=== PATIENT | female | born 1970 | race Caucasian/White ===

== ENCOUNTER 2017-07-26 03:16 | Inpatient (IN) | payer MEDICARE ==
[~2017-07-26] VITALS: Ht 167.6 cm; Wt 74.8 kg
--- NOTE | 2017-07-26 05:00 | NUR ---
pt alert and awake. ambulated into ED with c/o nausea and vomiting. pt in no acute distress
[2017-07-26] MEDS ORDERED: ZOLP10TA2 (05:15)
[2017-07-26] MEDS ORDERED: LORA2TAB (05:15)
[2017-07-26] MEDS ORDERED: DEXT10TA7 (05:15)
[2017-07-26] MEDS ORDERED: OXYC30TA2 (05:15)
[2017-07-26] MEDS ORDERED: ONDANSETRON 4 MG/2 ML VIAL IM ONE (05:30)
[2017-07-26 05:50] LABS: BASOPHILS % (AUTO) 0.4 % (0.0-2.0); HEMOGLOBIN 12.5 g/dL (10.9-14.3); LYMPHOCYTES # (AUTO) 1.5 K/uL (20.0-40.0); LYMPHOCYTES % (AUTO) 13.7 % (20.5-51.5); MEAN CORPUSCULAR HEMOGLOBIN 29.4 uug (24.7-32.8); MEAN CORPUSCULAR HGB CONC 33 g/dL (32.3-35.6); MEAN CORPUSCULAR VOLUME 89.7 fL (75.5-95.3); MONOCYTES # (AUTO) 0.5 K/uL (2.0-10.0); MONOCYTES % (AUTO) 4.6 % (0.0-11.0); NEUTROPHILS # (AUTO) 9.1 K/uL (1.8-8.9); NEUTROPHILS % (AUTO) 81.3 % (38.5-71.5); PLATELET COUNT (AUTO) 307 K/uL (179-408); RED BLOOD CELL COUNT(AUTO) 4.23 MIL/uL (3.63-4.92); WHITE BLOOD COUNT (AUTO) 11.2 K/uL (3.8-11.8)
[2017-07-26 05:55] LABS: POTASSIUM 3.6 mmol/L (3.5-5.1)
[2017-07-26] MEDS ORDERED: KETOROLAC TROMETHAMINE 30 MG INJ IM ONE (06:00)
[2017-07-26 06:01] LABS: BILIRUBIN,DIRECT 0.1 mg/dL (0.0-0.2); BILIRUBIN,TOTAL 0.2 mg/dL (0.2-1.0); TOTAL PROTEIN, SERUM 6.8 g/dL (6.4-8.2)
[2017-07-26] MEDS ORDERED: ONDANSETRON 4 MG/2 ML VIAL ONE ×2 (06:10→11:42)
[2017-07-26] MEDS ORDERED: KETOROLAC TROMETHAMINE 30 MG INJ ONE (06:13)
[2017-07-26 06:32] LABS: *BILIRUBIN,URIN NEGATIVE (NEGATIVE); *BLOOD, URINE 2+ (NEGATIVE); *CLARITY,URINE CLEAR (CLEAR); *COLOR,URINE YELLOW (YELLOW); *KETONES,URINE 2+ (NEGATIVE); *PROTEIN,URINE NEGATIVE (NEGATIVE); *UROBILINOGEN,URINE 0.2 E.U./dl (NORMAL); LEUKOCYTE ESTERASE ,URINE NEGATIVE (NEGATIVE); NITRITE, URINE NEGATIVE (NEGATIVE); UGLUCOSE NEGATIVE (NEGATIVE)
[2017-07-26 06:45] LABS: BACTERIA,URINE FEW /HPF (NONE SEEN); RBC,URINE 20-50 /HPF (0-3); SQUAMOUS EPITHELIAL CELL,UR FEW /HPF (NONE SEEN); WBC,URINE 0-3 /HPF (0-3)
[2017-07-26] MEDS ORDERED: LORAZEPAM 2 MG/1 ML VIAL IV ONE ×2 (06:51→11:15)
[2017-07-26] MEDS ORDERED: IV NS 1000 ML 1,000 ML IV ONE (07:00)
--- NOTE | 2017-07-26 07:15 | NUR ---
Medical Office Manager assumes care, RN Arlene is attempting IV line @this time.
[2017-07-26] MEDS ORDERED: LORAZEPAM 2 MG/1 ML VIAL ONE ×3 (07:18→11:43)
--- NOTE | 2017-07-26 07:19 | NUR ---
pt endorsed to day shift nurse Isabel PLOLOCK.
--- NOTE | 2017-07-26 07:29 | NUR ---
Patient ambulated to bathroom to void, +steady gait. Patient was not able to provided urine specimen. "I forgot." per patient's verbalization.
--- NOTE | 2017-07-26 07:31 | NUR ---
PHILL Arroyo is attempting IV line at this time. Patient says, "I usually have PICC line." Dr Goff notified.
--- NOTE | 2017-07-26 07:35 | NUR ---
* PHILL Arroyo tried to start IV line after multiple attempts, unsuccessful. No IV line or IV fluids at this time, Dr Goff notified.
[2017-07-26] MEDS ORDERED: LORAZEPAM 2 MG/1 ML VIAL IM ONE ×2 (07:37→09:15)
--- NOTE | 2017-07-26 07:45 | NUR ---
"May give water for now." per Dr Goff. 4 cups of water provided.
--- NOTE | 2017-07-26 07:50 | NUR ---
"Can I have pain medicine?" per patient. MD notified.
--- NOTE | 2017-07-26 07:56 | NUR ---
4 packets of crackers & apple juice given, monitored for vomiting
[2017-07-26] MEDS ORDERED: HYDROCODONE/APAP 10-325 MG TABLET PO ONE (08:00)
[2017-07-26] MEDS ORDERED: HYDROCODONE/APAP 10-325 MG TABLET ONE (08:18)
--- NOTE | 2017-07-26 08:23 | NUR ---
"I want more pain medicine and I still have the shakes." per patient's verbalization, aware
--- NOTE | 2017-07-26 09:14 | NUR ---
'Hot breakfast" tray provided, +good appetite, NAD.
--- NOTE | 2017-07-26 09:35 | NUR ---
Patient ate 100% of the breakfast tray. Patient is resting comfortably on gurney with eyes closed, NAD
--- NOTE | 2017-07-26 09:56 | NUR ---
Patient wants to be admitted, aware. [facility] hospitalist was called.
[2017-07-26] MEDS ORDERED: MAGNESIUM HYDROXIDE 30 ML LIQUID UDC PO PRN (10:15)
[2017-07-26] MEDS ORDERED: ACETAMINOPHEN 325 MG TABLET PO PRN (10:15)
[2017-07-26] MEDS ORDERED: HYDROCODONE/APAP 5-325MG TABLET PO PRN (10:15)
[2017-07-26] MEDS ORDERED: Z GUARD REMEDY PASTE 57 GM TUBE TOP PRN (10:15)
[2017-07-26] MEDS ORDERED: MORPHINE SULFATE 2 MG/1 ML DISP.SYRIN IV PRN (10:15)
[2017-07-26] MEDS ORDERED: ONDANSETRON 4 MG/2 ML VIAL IV PRN (10:15)
--- NOTE | 2017-07-26 10:21 | NUR ---
Patient is ready & positioned for EJ vein line insertion by .
--- NOTE | 2017-07-26 10:57 | NUR ---
attempted EJ vein line insertion, unsuccessful. is now attempting femoral line insertion
[2017-07-26 11:09] LABS: *AMPHETAMINE, URINE POSITIVE (NEGATIVE); *BARBITURATE, URINE NEGATIVE (NEGATIVE); *CANNABINOID, URINE NEGATIVE (NEGATIVE); *COCCAINE, URINE NEGATIVE (NEGATIVE); *OPIATE, URINE NEGATIVE (NEGATIVE); *PHENCYCLIDINE SCREEN,URINE NEGATIVE (NEGATIVE)
[2017-07-26] MEDS ORDERED: MORPHINE SULFATE 2 MG/1 ML DISP.SYRIN IV ONE (11:15)
[2017-07-26] MEDS ORDERED: ONDANSETRON IV *ER 4 MG/2 ML VIAL IV ONE (11:15)
[2017-07-26] MEDS: IV NS 1000 ML 1,000 ML IV PRN ×2 (11:20→13:20)
--- NOTE | 2017-07-26 11:21 | NUR ---
still for transfer to 2nd floor, pending admission papers, endorsed to PHILL sherman
[2017-07-26] MEDS ORDERED: MORPHINE SULFATE 4 MG/1 ML DISP.SYRIN ONE (11:42)
[2017-07-26 12:39] VITALS: BP 103/54
--- NOTE | 2017-07-26 12:49 | NUR ---
46 year old female pt received from via gurney in stable [id number] is axox4 v/s are stable orient the pt to room and surroundings.
[2017-07-26] MEDS: LORAZEPAM 2 MG/1 ML VIAL IV PRN ×3 (15:36→23:43)
[2017-07-26 16:02] VITALS: BP 122/63
--- NOTE | 2017-07-26 19:25 | NUR ---
RECEIVED PT IN BED. AXO X4. IV INFUSING. BED ON LOW POSITION. O2 AT 98% ON RA. SINUS RHYTHM ON TELE
--- NOTE | 2017-07-26 19:44 | NUR ---
PT COMPLAINED OF ANXIETY AND GIVEN ATIVAN PER ORDER.
[2017-07-26 20:15] VITALS: BP 98/43
--- NOTE | 2017-07-26 20:30 | NUR ---
PT DESATURATING BETWEEN 70'S TO 80'S AT 2LPM VIA NC. HOB ELEVATED AND REPOSITION FOR COMFORT. RT NOTIFIED. Addendum: 07/26/17 at 2323 by TRELL REYNOSO RN WRONG PATIENT
[2017-07-26] MEDS: MORPHINE SULFATE 4 MG/1 ML DISP.SYRIN IV PRN (20:47)
--- NOTE | 2017-07-26 20:50 | NUR ---
PT COMPLAINED OF GENERALIZED PAIN AND GIVEN MORPHINE PER ORDER.
--- NOTE | 2017-07-26 20:55 | NUR ---
PLACED ON BIPAP 24/10, FIO2 OF 40%, SATURATING 100% AT THIS TIME. RT AT BEDSIDE. Addendum: 07/26/17 at 2321 by TRELL REYNOSO RN WRONG PT
--- NOTE | 2017-07-26 23:15 | NUR ---
DRESSING CHANGE TO RIGHT FEMORAL AREA IV SITE.
--- NOTE | 2017-07-26 23:45 | NUR ---
PT COMPLAINED OF ANXIETY AND NAUSEA. ATIVAN GIVEN FOR ANXIETY AND ZOFRAN GIVEN FOR NAUSEA.
[2017-07-27] VITALS: BP 129/70
[2017-07-27] MEDS: MORPHINE SULFATE 4 MG/1 ML DISP.SYRIN IV PRN ×3 (00:40→08:19)
[2017-07-27] MEDS: LORAZEPAM 2 MG/1 ML VIAL IV PRN ×2 (03:00→06:50)
--- NOTE | 2017-07-27 03:00 | NUR ---
PT COMPLAINED OF ANXIETY, LORAZEPAM GIVEN PER ORDER. DRESSING ON RIGHT FEMORAL IV SITE DISPLACED. DRESSING CHANGED. INSTRUCTED PT TO MOVE SLOWLY AND CAREFULLY TO PREVENT PULLING IV TUBING AND STATES UNDERSTANDING.
[2017-07-27] MEDS: IV NS 1000 ML 1,000 ML IV PRN (03:57)
[2017-07-27 04:00] VITALS: BP 125/62
--- NOTE | 2017-07-27 04:14 | NUR ---
PT COMPLAINED OF GENERALIZED PAIN 10/10, MORPHINE GIVEN PER ORDER.
--- NOTE | 2017-07-27 06:00 | NUR ---
PT AXO4. IN NO ACUTE DISTRESS. VS STABLE. O2 SAT AT 97% ON RA. FREQUENT ANXIETY, LORAZEPAM GIVEN EVERY 4HR PRN, LAST GIVEN AT 0300, WITH MINIMAL EFFECT. C/O GENERALIZED PAIN AND GIVEN MORPHINE EVERY 4HR PRN, LAST GIVEN AT 0414, WITH MINIMAL RELIEF. DRESSING CHANGE TO RIGHT FEMORAL IV SITE X2 DUE TO SOILING. SINUS RHYTHM ON TELE. BRP. NO FALLS REPORTED. CONTINUE CURRENT PLAN OF CARE.
[2017-07-27 06:25] LABS: BASOPHILS # (AUTO) 0.1 K/uL (0.0-8.0); BASOPHILS % (AUTO) 0.7 % (0.0-2.0); EOSINOPHILS # (AUTO) 0.2 K/uL (0.0-0.7); EOSINOPHILS % (AUTO) 2.5 % (0.0-7.0); HEMATOCRIT 35.9 % (31.2-41.9); HEMOGLOBIN 11.8 g/dL (10.9-14.3); LYMPHOCYTES # (AUTO) 2.4 K/uL (20.0-40.0); MEAN CORPUSCULAR HEMOGLOBIN 29.5 uug (24.7-32.8); MEAN CORPUSCULAR HGB CONC 33 g/dL (32.3-35.6); MEAN CORPUSCULAR VOLUME 89.7 fL (75.5-95.3); MONOCYTES # (AUTO) 0.6 K/uL (2.0-10.0); MONOCYTES % (AUTO) 6.3 % (0.0-11.0); NEUTROPHILS # (AUTO) 5.6 K/uL (1.8-8.9); NEUTROPHILS % (AUTO) 63.5 % (38.5-71.5); PLATELET COUNT (AUTO) 261 K/uL (179-408); WHITE BLOOD COUNT (AUTO) 8.9 K/uL (3.8-11.8)
[2017-07-27 06:41] LABS: CREATININE 0.9 mg/dL (0.6-1.3); MAGNESIUM 1.8 mg/dL (1.8-2.4); POTASSIUM 3.7 mmol/L (3.5-5.1)
--- NOTE | 2017-07-27 06:50 | NUR ---
PT COMPLAINED OF ANXIETY. LORAZEPAM GIVEN PER ORDER.
--- NOTE | 2017-07-27 07:40 | NUR ---
RECEIVED PT IN BED. AXO X4. IV INFUSING. BED ON LOW POSITION. O2 AT 98% ON RA. SINUS RHYTHM ON TELE call light with in reach
--- NOTE | 2017-07-27 08:00 | NUR ---
DSG. CHANGED RIGHT FEMORAL USING STERILE TECHNIQUE. SITE CLEANSED WITH NS, & TEGADERM APPLIED.
--- NOTE | 2017-07-27 08:19 | NUR ---
PT COMPLAINED OF GENERALIZED PAIN 10/10, MORPHINE GIVEN PER ORDER.
[2017-07-27 11:11] VITALS: BP 114/67
[2017-07-27] MEDS: OXYCODONE HCL 5 MG TABLET PO PRN ×2 (12:16→18:19)
[2017-07-27] MEDS: LORAZEPAM 1 MG TABLET PO PRN ×2 (14:51→18:46)
[2017-07-27 15:21] VITALS: BP 121/53
--- NOTE | 2017-07-27 16:00 | NUR ---
IV DCD AFTER REMOVING 2 SUTURES. ANGIOCATH REMOVED INTACT. PRESSURE DRESSING APPLIED.
[2017-07-27] MEDS ORDERED: ONDANSETRON HCL 4 MG TABLET PO PRN (17:30)
--- NOTE | 2017-07-27 19:30 | NUR ---
Received patient laying comfortably in bed. No c/o pain. A&O x 4. No IV site. Previous IV site on the femoral C/D/I. Safety initiated. Call light within reach. Bed is in low and locked position. Room is kept clutter free. Will continue to monitor.
[2017-07-27 20:00] VITALS: BP 115/58
[2017-07-27] MEDS ORDERED: ZOLPIDEM 5 MG TABLET PO PRN (21:15)
[2017-07-28] MEDS: LORAZEPAM 1 MG TABLET PO PRN ×3 (00:13→08:20)
[2017-07-28] MEDS: OXYCODONE HCL 5 MG TABLET PO PRN ×2 (01:35→07:21)
[2017-07-28 04:35] VITALS: BP 111/73
--- NOTE | 2017-07-28 05:45 | NUR ---
Patient slept intermittently t/o shift. Patient reports feeling anxious. Meds given, stated relief. Vital signs stable. Safety and comfort measures maintained t/o shift. Room is kept clutter free. Bed is in low and locked position. All meds given as ordered. All needs met.
--- NOTE | 2017-07-28 07:29 | NUR ---
Received patient laying comfortably in bed. c/o pain. A&O x 4. No IV site. Call light within reach. Will continue to monitor.
--- NOTE | 2017-07-28 09:50 | NUR ---
D/C ORDERS RECEIVED NOTED AND CARRIED OUT.D/C INSTRUCTION GIVEN TO PT AND PT VERBALIZED UNDERSTANDING ALL THE INSTRUCTIONS,PT LEFT THE FACILITY VIA PRIVATE CAR IN STABLE CONDITION.
== END 2017-07-28 09:55 | disposition home or self-care (01) | DRG 897 ==
LOC: ER 03:20 → TELE 11:42 → EDBD 11:42 → MED 07-27 11:50
PROVIDERS: ADMIT Internal Medicine; ATTEND Internal Medicine
PROC: 06HM33Z Insertion of Infusion Device into Right Femoral Vein, Percutaneous Approach (ICD-10-PCS; principal; 2017-07-26)
DX: F13.239 Sedative, hypnotic or anxiolytic dependence with withdrawal, unspecified (principal); F11.23 Opioid dependence with withdrawal; E03.9 Hypothyroidism, unspecified; F32.9 Major depressive disorder, single episode, unspecified; M79.7 Fibromyalgia; F41.9 Anxiety disorder, unspecified; G89.29 Other chronic pain; M19.90 Unspecified osteoarthritis, unspecified site; F90.9 Attention-deficit hyperactivity disorder, unspecified type; Z79.899 Other long term (current) drug therapy
CPT/HCPCS: 36415; 36556; 80307; 83690; 83735; 84100; 84443; 84703; 85025; A4663; C1751; J1885; J2060; J2270; J2405; J7030; J7050

== ENCOUNTER 2017-10-23 07:56 | Inpatient (IN) | payer MEDICARE, OTHER ==
[~2017-10-23] VITALS: Ht 167.6 cm; Wt 74.8 kg
[~2017-10-23 07:56] MED LIST: LIDOCAINE HCL 1% 20 ML VIAL MC ONE; LORA2TAB; OXYC30TA2; PROPOFOL 200 MG/20 ML BOTTLE IV ONE; ZOLP10TA2
[2017-10-23] MEDS ORDERED: CLON2TAB4 PO (08:08)
[2017-10-23] MEDS ORDERED: BUPR1FIL3 SL (08:08)
[2017-10-23] MEDS ORDERED: PANTOPRAZOLE SODIUM 40 MG VIAL IV ONE (08:15)
[2017-10-23] MEDS ORDERED: LORAZEPAM 2 MG/1 ML VIAL IV ONE ×3 (08:15→08:45)
[2017-10-23] MEDS ORDERED: IV NORMAL SALINE 1000 ML BAG IV ONE (08:15)
[2017-10-23] MEDS ORDERED: ONDANSETRON 4 MG/2 ML VIAL ONE (08:17)
[2017-10-23] MEDS ORDERED: LORAZEPAM 2 MG/1 ML VIAL ONE ×4 (08:18→10:45)
[2017-10-23] MEDS ORDERED: PANTOPRAZOLE SODIUM 40 MG VIAL ONE (08:20)
[2017-10-23 08:23] LABS: BASOPHILS # (AUTO) 0.1 K/uL (0.0-8.0); BASOPHILS % (AUTO) 0.7 % (0.0-2.0); EOSINOPHILS # (AUTO) 0.2 K/uL (0.0-0.7); EOSINOPHILS % (AUTO) 1.5 % (0.0-7.0); HEMATOCRIT 46.9 % (31.2-41.9); HEMOGLOBIN 15.9 g/dL (10.9-14.3); LYMPHOCYTES # (AUTO) 3.6 K/uL (20.0-40.0); LYMPHOCYTES % (AUTO) 30.2 % (20.5-51.5); MEAN CORPUSCULAR HEMOGLOBIN 29.6 uug (24.7-32.8); MEAN CORPUSCULAR HGB CONC 34 g/dL (32.3-35.6); MEAN CORPUSCULAR VOLUME 87.2 fL (75.5-95.3); MONOCYTES # (AUTO) 0.9 K/uL (2.0-10.0); MONOCYTES % (AUTO) 7.5 % (0.0-11.0); NEUTROPHILS # (AUTO) 7.2 K/uL (1.8-8.9); NEUTROPHILS % (AUTO) 60.1 % (38.5-71.5); PLATELET COUNT (AUTO) 321 K/uL (179-408); RED BLOOD CELL COUNT(AUTO) 5.37 MIL/uL (3.63-4.92); WHITE BLOOD COUNT (AUTO) 11.9 K/uL (3.8-11.8)
--- NOTE | 2017-10-23 08:45 | NUR ---
SALINE LOCK PLACED/LABS DRAWN/URINE SENT/POISEN CONTROL WAS CALLED BY DR THOMPSON/MEDS ADMINISTERED/CXR DONE/URINE SENT/1L 0.9NS BOLUS INFUSING/EKG DONE/MONITOR SHOWS, SINUS TACH AT 126/PO2 =98% ON ROOM AIR.
[2017-10-23 08:50] LABS: *BILIRUBIN,URIN NEGATIVE (NEGATIVE); *BLOOD, URINE 2+ (NEGATIVE); *CLARITY,URINE CLEAR (CLEAR); *COLOR,URINE YELLOW (YELLOW); *KETONES,URINE 1+ (NEGATIVE); *PROTEIN,URINE 1+ (NEGATIVE); *UROBILINOGEN,URINE 0.2 E.U./dl (NORMAL); LEUKOCYTE ESTERASE ,URINE TRACE (NEGATIVE); NITRITE, URINE NEGATIVE (NEGATIVE); UGLUCOSE NEGATIVE (NEGATIVE)
[2017-10-23 08:54] LABS: CARBON DIOXIDE 21 mmol/L (21-32); CHLORIDE 110 mmol/L (98-107); CREATININE 1.4 mg/dL (0.6-1.3); GLUCOSE 155 mg/dL (74-106); UREA NITROGEN, BLOOD 17 mg/dL (7-18)
[2017-10-23 09:02] LABS: ETHANOL < 3 MG/DL (0-0)
[2017-10-23 09:05] LABS: *AMPHETAMINE, URINE NEGATIVE (NEGATIVE); *BARBITURATE, URINE NEGATIVE (NEGATIVE); *CANNABINOID, URINE POSITIVE (NEGATIVE); *COCCAINE, URINE NEGATIVE (NEGATIVE); *OPIATE, URINE NEGATIVE (NEGATIVE); *PHENCYCLIDINE SCREEN,URINE NEGATIVE (NEGATIVE)
[2017-10-23 09:10] LABS: ACETAMINOPHEN < 2.0 ug/mL (10-30); ALANINE AMINOTRANSFERASE 29 U/L (14-59); ALKALINE PHOSPHATASE 119 U/L (50-136); ASPARTATE AMINOTRANSFERASE 20 U/L (15-37); BILIRUBIN,DIRECT 0.1 mg/dL (0.0-0.2); BILIRUBIN,TOTAL 0.3 mg/dL (0.2-1.0); TOTAL PROTEIN, SERUM 7.5 g/dL (6.4-8.2)
[2017-10-23 09:30] LABS: BACTERIA,URINE FEW /HPF (NONE SEEN); CALCIUM OXALATE CRYSTALS,UR MANY /HPF (NONE SEEN); SQUAMOUS EPITHELIAL CELL,UR FEW /HPF (NONE SEEN)
--- NOTE | 2017-10-23 09:47 | NUR ---
sbar report to neurosurgery research director. belonging list done,
[2017-10-23] MEDS ORDERED: LORAZEPAM 2 MG/1 ML VIAL IV PRN (11:45)
[2017-10-23 13:04] VITALS: BP 145/73
--- NOTE | 2017-10-23 13:13 | NUR ---
Patient was brought from surgery, extremely anxious, asking for ice chips and Ativan repeatedly. Was told she will get it after the tele monitor gets placed but patient kept asking. Tele monitor was placed, Vitals taken however pt refusing full assessment. Dr Thorne was called for and order for Ativan, patient was given Ativan as ordered. 1:1 sitter at bedside, Graham from crisis team was called and Psych consult was placed
[2017-10-23] MEDS ORDERED: HYDROMORPHONE 1 MG/1 ML DISP.SYRIN IV PRN (14:30)
[2017-10-23] MEDS ORDERED: ACETAMINOPHEN 650 MG SUPP.RECT RC PRN (14:30)
[2017-10-23] MEDS: LORAZEPAM 2 MG/1 ML VIAL IV PRN ×3 (14:36→23:59)
[2017-10-23] MEDS: CEFTRIAXONE 1 G in IV DEXTROSE 5% 50 ML IV SCH (14:43)
--- NOTE | 2017-10-23 14:44 | NUR ---
ADMINISTERED ATIVAN VIA RFA IV. UPON FLUSHING PATIENT COMPLAINED OF BURNING, DID NOT LET ME ASSESS IV ANY FURTHER, ASKED ME TO LEAVE AND SAID "JUST LEAVE IT, I WANT TO SLEEP"
[2017-10-23] MEDS: HYDROMORPHONE 2 MG/1 ML DISP.SYRIN IV PRN ×3 (15:42→23:24)
[2017-10-23 15:43] VITALS: BP 127/64
[2017-10-23 16:22] VITALS: BP 147/79
[2017-10-23] MEDS: SUCRALFATE 1 G/10 ML LIQUID UDC PO SCH (17:18)
--- NOTE | 2017-10-23 19:30 | NUR ---
nsg: pt received alert, oriented, but very anxious. c/o of severe anxiety, and back pain. with 1:1 sitter for safety. tele, SR. when asked if she currently thinks of committing suicide, pt stated yes. cont to monitor. 1:1 sitter at the bedside.
[2017-10-23] MEDS: POTASSIUM CHLORIDE 20 MEQ in IV D5 1/2 NS 1000 ML 1,000 ML IV PRN (19:45)
[2017-10-23 20:00] VITALS: BP 104/52
[2017-10-23] MEDS ORDERED: PANTOPRAZOLE SODIUM 40 MG VIAL IV SCH (21:00)
[2017-10-23] MEDS: PANTOPRAZOLE SODIUM 40 MG VIAL IV SCH (21:07)
[2017-10-24] VITALS: BP 104/50
[2017-10-24] MEDS: SUCRALFATE 1 G/10 ML LIQUID UDC PO SCH ×4 (00:07→17:41)
[2017-10-24 04:00] VITALS: BP 118/61
[2017-10-24] MEDS: HYDROMORPHONE 2 MG/1 ML DISP.SYRIN IV PRN ×5 (04:36→20:38)
[2017-10-24] MEDS: LORAZEPAM 2 MG/1 ML VIAL IV PRN ×4 (05:19→17:21)
--- NOTE | 2017-10-24 05:25 | NUR ---
end of shift notes: pt slept for 6 hrs. wakes up in between requesting for ativan and dilaudid. pt is very anxious when awake. also, c/o back pain, medicated with dilaudid 1mg ivp. 1:1 sitter at the bedside. remains npo except ice chips. on cont ivf. tele, SR. cont to monitor.
--- NOTE | 2017-10-24 08:00 | NUR ---
AWAKE ANXIOUS BUT COOPERATE WELL RESTING QUIET WITH CALL LIGHT IN REACH AND SITTER 1:1 AT BEDSIDE FOR SAFETY CLOSED OBSERVATION
[2017-10-24] MEDS: PANTOPRAZOLE SODIUM 40 MG VIAL IV SCH ×2 (08:09→20:39)
[2017-10-24] MEDS: POTASSIUM CHLORIDE 20 MEQ in IV D5 1/2 NS 1000 ML 1,000 ML IV PRN ×2 (08:10→20:39)
--- NOTE | 2017-10-24 10:00 | NUR ---
DR LIPSCOMB SEEN PATIENT THIS AM NO NEW ORDER
[2017-10-24 10:08] LABS: BASOPHILS % (AUTO) 0.5 % (0.0-2.0); EOSINOPHILS # (AUTO) 0.3 K/uL (0.0-0.7); EOSINOPHILS % (AUTO) 2.9 % (0.0-7.0); HEMOGLOBIN 13.1 g/dL (10.9-14.3); LYMPHOCYTES # (AUTO) 2.6 K/uL (20.0-40.0); LYMPHOCYTES % (AUTO) 27.6 % (20.5-51.5); MEAN CORPUSCULAR HEMOGLOBIN 29.5 uug (24.7-32.8); MEAN CORPUSCULAR HGB CONC 34 g/dL (32.3-35.6); MEAN CORPUSCULAR VOLUME 87.7 fL (75.5-95.3); MONOCYTES # (AUTO) 0.4 K/uL (2.0-10.0); MONOCYTES % (AUTO) 3.8 % (0.0-11.0); NEUTROPHILS # (AUTO) 6.1 K/uL (1.8-8.9); NEUTROPHILS % (AUTO) 65.2 % (38.5-71.5); PLATELET COUNT (AUTO) 177 K/uL (179-408); RED BLOOD CELL COUNT(AUTO) 4.45 MIL/uL (3.63-4.92); WHITE BLOOD COUNT (AUTO) 9.4 K/uL (3.8-11.8)
[2017-10-24 10:44] LABS: BILIRUBIN,TOTAL 0.2 mg/dL (0.2-1.0); CREATININE 1.1 mg/dL (0.6-1.3); MAGNESIUM 1.6 mg/dL (1.8-2.4); POTASSIUM 3.2 mmol/L (3.5-5.1); TOTAL PROTEIN, SERUM 6.2 g/dL (6.4-8.2)
[2017-10-24 11:26] VITALS: BP 118/76
[2017-10-24] MEDS: CEFTRIAXONE 1 G in IV DEXTROSE 5% 50 ML IV SCH (14:26)
[2017-10-24] MEDS ORDERED: PANT40TA2 PO (15:28)
[2017-10-24] MEDS ORDERED: SUCR1ORA PO (15:28)
--- NOTE | 2017-10-24 16:00 | NUR ---
DR WALLACE ORDER NEW MEDICINE TO CALM HER DOWN FOR ANXIETY REQUEST RESTING WELL IN ROOM D/C PLANNING TO OUT SIDE FACILITY WORKING BY PROGRAM MANAGEMENT ANALYST
[2017-10-24 16:06] VITALS: BP 120/67
[2017-10-24] MEDS: DULOXETINE 30 MG CAPSULE.DR PO SCH (16:29)
--- NOTE | 2017-10-24 17:15 | NUR ---
SAME CONDITION ,VERY ANXIETY BUT COOPERATE NO ACUTE DISTRESS NO AGITATION SAFETY MEASURE SITTER 1:1 AT BEDSIDE AND CALL LIGHT IN REACH
[2017-10-24 19:00] VITALS: BP 123/62
--- NOTE | 2017-10-24 20:00 | NUR ---
Pt observed to be sleeping at this time, but easily arousable to verbal and tactile stimuli. Tele noted to be sinus rhythm. 1:1 sitter at bedside. No s/s of distress noted at this time. Safety measures provided. IVF running as ordered. Will continue to monitor closely.
[2017-10-24] MEDS: CLONAZEPAM 0.5 MG TABLET PO PRN (20:38)
[2017-10-25] VITALS: BP 140/53
[2017-10-25] MEDS: SUCRALFATE 1 G/10 ML LIQUID UDC PO SCH ×3 (00:24→11:05)
[2017-10-25] MEDS: LORAZEPAM 2 MG/1 ML VIAL IV PRN ×5 (00:24→16:30)
[2017-10-25] MEDS: HYDROMORPHONE 2 MG/1 ML DISP.SYRIN IV PRN ×4 (01:08→13:32)
--- NOTE | 2017-10-25 05:24 | NUR ---
Per pt, she is feeling very anxious and has suicidal ideations at this time. Relaxation techniques provided and pt remains cooperative with all care. Ativan PRN administered as ordered. 1:1 sitter at bedside for safety. Pt made aware of all plan of care. Will continue to monitor closely.
[2017-10-25 05:58] VITALS: BP 128/77
--- NOTE | 2017-10-25 07:20 | NUR ---
Received pt awake, alert and oriented time 4. Pt states she wants her pain medication and Ativan as soon as they are due. 1:1 sitter is present in the room for safety. Pt is able to ambulated and verbalize needs. Pt states she is very anxious.
[2017-10-25] MEDS: PANTOPRAZOLE SODIUM 40 MG VIAL IV SCH (08:05)
[2017-10-25] MEDS: DULOXETINE 30 MG CAPSULE.DR PO SCH (08:05)
[2017-10-25] MEDS: CLONAZEPAM 0.5 MG TABLET PO PRN (08:06)
[2017-10-25 08:20] VITALS: BP 113/66
[2017-10-25 12:00] VITALS: BP 120/61
[2017-10-25] MEDS: CEFTRIAXONE 1 G in IV DEXTROSE 5% 50 ML IV SCH (14:11)
--- NOTE | 2017-10-25 14:50 | NUR ---
Informed by case management that there is a room for the pt at [facility].
[2017-10-25 16:33] VITALS: BP 137/74
--- NOTE | 2017-10-25 16:40 | NUR ---
Pt was discharged with orders to [facility]. Pt had discharge orders since yesterday 10/24. Pt signed personal belonging list after going thought it and discharge papers. Pt is leaving via [facility] with two millinery designer. Report was given and [facility] is aware of pt's arrival. IV line removed after giving last dose of Ativan. Removed ID band. Pt is in stable conditions. No apparent s/s of SOB, distress or discomfort.
[2017-10-25] MEDS ORDERED: PANTOPRAZOLE SODIUM 40 MG TABLET.DR PO SCH (17:00)
[2017-10-25] MEDS ORDERED: MIRTAZAPINE 15 MG TABLET PO SCH (21:00)
== END 2017-10-25 16:40 | DRG 917 ==
LOC: ER 07:56 → CCU 09:20 → TELE 11:23 → MED 10-25 13:00
PROVIDERS: ADMIT Internal Medicine; ATTEND Internal Medicine
PROC: 0DB68ZX Excision of Stomach, Via Natural or Artificial Opening Endoscopic, Diagnostic (ICD-10-PCS; 2017-10-23)
PROC: 0DB98ZX Excision of Duodenum, Via Natural or Artificial Opening Endoscopic, Diagnostic (ICD-10-PCS; principal; 2017-10-23 10:00)
DX: T54.3X2A Toxic effect of corrosive alkalis and alkali-like substances, intentional self-harm, initial encounter (principal); N17.0 Acute kidney failure with tubular necrosis; T28.6XXA Corrosion of esophagus, initial encounter; F33.2 Major depressive disorder, recurrent severe without psychotic features; T28.7XXA Corrosion of other parts of alimentary tract, initial encounter; F11.20 Opioid dependence, uncomplicated; K22.10 Ulcer of esophagus without bleeding; E87.0 Hyperosmolality and hypernatremia; F13.20 Sedative, hypnotic or anxiolytic dependence, uncomplicated; J98.11 Atelectasis; T52.8X2A Toxic effect of other organic solvents, intentional self-harm, initial encounter; Y92.89 Other specified places as the place of occurrence of the external cause; K25.9 Gastric ulcer, unspecified as acute or chronic, without hemorrhage or perforation; M79.7 Fibromyalgia; G89.4 Chronic pain syndrome; E87.6 Hypokalemia; K29.80 Duodenitis without bleeding; G40.909 Epilepsy, unspecified, not intractable, without status epilepticus; F90.9 Attention-deficit hyperactivity disorder, unspecified type; F41.9 Anxiety disorder, unspecified; Z90.710 Acquired absence of both cervix and uterus
CPT/HCPCS: 36415; 43235; 71045; 80307; 83550; 83735; 84100; 84443; 84703; 85025; 85730; 86850; 86900; 86901; 88342; 93005; A4217; A4663; C9113; G0480; G0480-TC; J0696; J1170; J2060; J2405; J3480; J3490; J7030; J7060; J7120

== ENCOUNTER 2018-01-17 20:26 | Emergency (ER) | payer MEDICARE, OTHER ==
[~2018-01-17] VITALS: Ht 167.6 cm; Wt 83.9 kg
[~2018-01-17 20:26] MED LIST changes: +BUPR1FIL3 SL; +CLON2TAB11 PO; -LIDOCAINE HCL 1% 20 ML VIAL MC ONE; -LORA2TAB; +PANT40TA2 PO; -PROPOFOL 200 MG/20 ML BOTTLE IV ONE; +SUCR1ORA PO
--- NOTE | 2018-01-17 20:58 | NUR ---
Patient taken to CT via gurney with transporter. VSS
--- NOTE | 2018-01-17 21:00 | NUR ---
Patient returned from CT. No acute distress noted. VSS
[2018-01-17 21:06] LABS: BASOPHILS # (AUTO) 0.1 K/uL (0.0-8.0); BASOPHILS % (AUTO) 0.9 % (0.0-2.0); EOSINOPHILS # (AUTO) 0.5 K/uL (0.0-0.7); EOSINOPHILS % (AUTO) 4.9 % (0.0-7.0); HEMATOCRIT 32.2 % (31.2-41.9); HEMOGLOBIN 10.6 g/dL (10.9-14.3); LYMPHOCYTES # (AUTO) 2.5 K/uL (20.0-40.0); LYMPHOCYTES % (AUTO) 24.7 % (20.5-51.5); MEAN CORPUSCULAR HEMOGLOBIN 30.9 uug (24.7-32.8); MEAN CORPUSCULAR HGB CONC 33 g/dL (32.3-35.6); MEAN CORPUSCULAR VOLUME 93.9 fL (75.5-95.3); MONOCYTES # (AUTO) 0.5 K/uL (2.0-10.0); MONOCYTES % (AUTO) 4.6 % (0.0-11.0); NEUTROPHILS # (AUTO) 6.6 K/uL (1.8-8.9); NEUTROPHILS % (AUTO) 64.9 % (38.5-71.5); PLATELET COUNT (AUTO) 213 K/uL (179-408); RED BLOOD CELL COUNT(AUTO) 3.43 MIL/uL (3.63-4.92); WHITE BLOOD COUNT (AUTO) 10.1 K/uL (3.8-11.8)
[2018-01-17 21:17] LABS: ETHANOL < 3 MG/DL (0-0)
[2018-01-17 21:20] LABS: CARBON DIOXIDE 26 mmol/L (21-32); CHLORIDE 109 mmol/L (98-107); CREATININE 0.8 mg/dL (0.6-1.3); GLUCOSE 85 mg/dL (74-106); POTASSIUM 3.9 mmol/L (3.5-5.1); UREA NITROGEN, BLOOD 20 mg/dL (7-18)
[2018-01-17 21:29] LABS: ACETAMINOPHEN 3.7 ug/mL (10-30); ALANINE AMINOTRANSFERASE 27 U/L (14-59); ALKALINE PHOSPHATASE 78 U/L (50-136); ASPARTATE AMINOTRANSFERASE 23 U/L (15-37); BILIRUBIN,DIRECT 0.1 mg/dL (0.0-0.2); BILIRUBIN,TOTAL 0.2 mg/dL (0.2-1.0); CREATINE KINASE, TOTAL 128 U/L (26-192); TOTAL PROTEIN, SERUM 5.6 g/dL (6.4-8.2)
--- NOTE | 2018-01-17 22:15 | NUR ---
Patient in bed, no acute distress noted. VSS
--- NOTE | 2018-01-17 22:41 | NUR ---
Patient discharged to home in stable conditon. Written and verbal after care instructions given. Patient verbalizes understanding of instructions. Ambulated from ER with stable gait. All belongings with patient. Patient states she does not have a means of getting home. embroidery supervisor is notified of patient concern, further care deferred to embroidery supervisor for patient assistance. Patient has left ER premises.
[2018-01-17 22:45] VITALS: BP 127/74
== END 2018-01-17 22:46 | disposition home or self-care (01) ==
LOC: ER 20:27
DX: S09.90XA Unspecified injury of head, initial encounter (principal); E86.0 Dehydration; F13.20 Sedative, hypnotic or anxiolytic dependence, uncomplicated; Z90.710 Acquired absence of both cervix and uterus; Z88.8 Allergy status to other drugs, medicaments and biological substances; W19.XXXA Unspecified fall, initial encounter; Y93.89 Activity, other specified; Y92.89 Other specified places as the place of occurrence of the external cause; Y99.8 Other external cause status
CPT/HCPCS: 36415; 70450; 80048; 80076; 80164; 82550; 84703; 85025; 99285; A4663; G0480 ×2; G0481